=== PATIENT | male | born 1990 | race American Indian/Alaskan Native ===

== ENCOUNTER 2017-05-11 00:11 | Emergency (ER) | payer OTHER ==
[2017-05-11] MEDS ORDERED: TYLENOL #3 PO ONE (04:25)
[2017-05-11] MEDS ORDERED: FLEXERIL PO ONE (04:25)
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
[2017-05-11 06:37] VITALS: BP 134/85
[2017-05-11] MEDS ORDERED: TRIPLE ANTIBIOTIC TP ONE ×4 (06:55→08:00)
== END 2017-05-11 06:36 | disposition home or self-care (01) ==
LOC: ED 00:11
DX: S01.111A Laceration without foreign body of right eyelid and periocular area, initial encounter (principal); Y04.2XXA Assault by strike against or bumped into by another person, initial encounter; Y93.89 Activity, other specified; Y99.9 Unspecified external cause status; Y92.89 Other specified places as the place of occurrence of the external cause
CPT/HCPCS: 70450; 70486; 72125; A6250